=== PATIENT | male | born 1965 | race Hispanic/Latino ===

== ENCOUNTER 2025-02-26 12:38 | Outpatient (CLI) | payer OTHER | END 2025-02-26 12:39 | disposition home or self-care (01) | LOC: CSHRAD 12:38 | PROVIDERS: ATTEND Nurse Practitioner Family | DX: Z02.71 Encounter for disability determination (principal); M19.90 Unspecified osteoarthritis, unspecified site; M47.816 Spondylosis without myelopathy or radiculopathy, lumbar region; I70.90 Unspecified atherosclerosis; M17.12 Unilateral primary osteoarthritis, left knee | CPT/HCPCS: 72100 ==